=== PATIENT | male | born 1940 | race Caucasian/White ===

== ENCOUNTER 2017-02-11 12:55 | Emergency (ER) | payer MEDICARE, OTHER ==
[~2017-02-11] VITALS: Ht 170.2 cm; Wt 109.0 kg
[2017-02-11] MEDS ORDERED: SODIUM CHLORIDE FLUSH 10ML SYR IVF ONE (13:30)
[2017-02-11] MEDS ORDERED: SODIUM CHLORIDE 0.9% 1,000ML IVBOLUS ONE (13:30)
[2017-02-11 13:50] LABS: BLOOD UREA NITROGEN 23 mg/dL (7-18)
[2017-02-11 15:33] VITALS: BP 130/90
== END 2017-02-11 15:35 | disposition home or self-care (01) ==
LOC: ED 15:29
DX: R55 Syncope and collapse (principal); E11.9 Type 2 diabetes mellitus without complications
CPT/HCPCS: 36415; 80048; 82040; 85025; 93005; 96360; 99285; J7030